=== PATIENT | female | born 1995 | race Caucasian/White ===

== ENCOUNTER → 2017-06-16 10:59 | Outpatient (CLI) | payer MEDICAID, SELFPAY ==
[2017-06-16 13:53] LABS: Hematocrit 37.9 % (37-47); Hemoglobin 12.4 g/dl (12.0-15.0); Mean Corp Hgb Conc 32.7 g/gl (32-36); Mean Corpuscular Hgb 30.5 pg (27.0-32.0); Mean Corpuscular Volume 93.1 fL (81-99); Mean Platelet Vol. 9.3 fl (6.2-12.0); Platelet Count 218 K/mm3 (150-450); RBC Distribution Width CV 13.1 % (11.6-14.6); RBC Distribution Width SD 44.6 fl (35.1-43.9); Red Blood Count 4.07 M/mm3 (4.2-5.4); White Blood Count 8.1 K/mm3 (4.4-11.0)
[2017-06-16 13:54] LABS: Scan Indicated on CBC? Y/N NO
== END ==
PROVIDERS: Visit Provider Obstetrics & Gynecology
DX: Z34.90 Encounter for supervision of normal pregnancy, unspecified, unspecified trimester (principal)
CPT/HCPCS: 36415; 85027

== ENCOUNTER → 2017-07-29 13:37 | Outpatient (CLI) | payer MEDICAID, SELFPAY ==
[2017-07-29 14:03] LABS: Amphetamine Urine VISTA NEGATIVE (<1000 ng/mL); Barbiturate Urine VISTA NEGATIVE (< 200 ng/mL); Benzodiazepine Urine VISTA NEGATIVE (< 200 ng/mL); Cocaine Urine VISTA NEGATIVE (< 300 ng/mL); Ecstacy Urine VISTA NEGATIVE (< 500 ng/mL); Methadone Urine VISTA NEGATIVE (< 300 ng/mL); PCP Urine VISTA NEGATIVE (< 25 ng/mL); THC Urine VISTA NEGATIVE (< 50 ng/mL); Vista UDS pH Range 6
== END ==
PROVIDERS: Visit Provider Obstetrics & Gynecology
DX: O99.320 Drug use complicating pregnancy, unspecified trimester (principal); F12.90 Cannabis use, unspecified, uncomplicated; Z3A.00 Weeks of gestation of pregnancy not specified
CPT/HCPCS: 80307

== ENCOUNTER 2017-08-09 08:50 | Inpatient (IN) | payer MEDICAID, SELFPAY ==
[2017-08-09] VITALS (18 sets, daily range): BP systolic 89–120; BP diastolic 42–99; PULSE 79–109; RESP 16–20; TEMP 36.1–36.7; O2SAT 98–100; BMI 29.9
--- NOTE | 2017-08-09 | FALS_PTH ---
PATIENT: CRIS PAINTING LOC: [facility] U#:[id number] AGE/SX: 22/F ROOM: WP008 RE08/09/[address]: Dr. Sara Mckinney MD : 1995 BED: 1 DIS: 08/12/2017 SPEC #: [id number] RECD: 08/10/17 08:11 STATUS: JORDY KAY #: [id number] EMILEE: 08/09/17 00:[address]: Sara Mckinney DEPT: SURGICAL PATHOLOGY RECD BY: Ovi Pathak ENTERED: 08/10/17 08:11 SP TYPE: FALL TUBES OTHR DR: No Primary Care Phys Tissues: Fallopian tube Procedures: Surgery Specimen Level II HEADER OPERATION: Tubal ligation, bilateral partial salpingectomy PRE-OP DIAGNOSIS: Sterilization request TISSUE SUBMITTED: Fallopian tubes, suture in right tube MICROSCOPIC DIAGNOSIS Bilateral fallopian tubes, partial salpingectomy: Completely transected segments of bilateral fallopian tubes, no pathologic diagnosis. SJ:fabby 08/11/17 MICROSCOPIC DESCRIPTION Slides are reviewed. GROSS DESCRIPTION Received is one container labeled with the patient's name and designated suture right tube. The specimen consists of two tubular pieces of mejia-pink soft tissue. The right tube is identified by a suture. The right tube with suture measures 1 cm in length and 0.5 cm in diameter. This piece is inked black. The left tube measures 1 cm in length and 0.8 cm in diameter. The entire specimen is submitted in one cassette. Both pieces will be sectioned at the time of embedding. / RANDY:fabby 08/10/17 TC:4 CPT: 41562 x2
[2017-08-09 09:46] LABS: Bedside Glucose 83 mg/dL (70-110)
[2017-08-09 09:58] LABS: Absolute Lymphocyte Count 1.24 X10^3/ul (0.83-4.51); Absolute Neutrophil Count 6.8 X10^3/uL (2.0-7.7); Basophil# 0.02 X10^3/uL; Basophil% 0.2 % (0-1); Eosinophil# 0.04 X10^3/uL; Eosinophils% 0.5 % (0-5); Hematocrit 40.5 % (37-47); Hemoglobin 13.3 g/dl (12.0-15.0); Lymphocyte # 1.24 X10^3/ul (4.0); Lymphocyte % 14.2 % (19-41); Mean Corp Hgb Conc 32.8 g/gl (32-36); Mean Corpuscular Volume 91.2 fL (81-99); Mean Platelet Vol. 10.3 fl (6.2-12.0); Monocyte% 6.9 % (0-10); Neutrophil # 6.84 X10^3/uL (2.7-7.7); Neutrophil % 78.1 % (47-70); Platelet Count 238 K/mm3 (150-450); RBC Distribution Width CV 13.1 % (11.6-14.6); RBC Distribution Width SD 43.4 fl (35.1-43.9); Red Blood Count 4.44 M/mm3 (4.2-5.4); White Blood Count 8.8 K/mm3 (4.4-11.0)
[2017-08-09 09:59] LABS: POSITIVE COUNT NO; POSITIVE DIFFERENTIAL NO; POSITIVE MORPHOLOGY NO
[2017-08-09] MEDS: Lactated Ringers 1,000 ML 999 ML IV (10:00)
[2017-08-09] MEDS: Lactated Ringers 1,000 ML 150 ML IV (11:00)
--- NOTE | 2017-08-09 11:06 | NURSING ---
TC to haroon and discussed changing the pt's antibiotic order from ancef to Clindamycin/Gent due to PCN allergy. Also discussed pt's POC BGT in the 80's and a concern that pt is not allowed to eat d/t noon c/s. The plan is to start a second IV line and implement the insulin infusion order set. That orderset gives the orders to do a POC BGT q 1 hour. It also gives the order far a second IV line and to start a D5 maintenance line to prevent hypoglycemia. Handoff given to Jessica.
[2017-08-09] MEDS: Dext 5%-0.45% NS 1,000 ML 125 ML IV ×2 (11:45→13:20)
[2017-08-09 11:48] LABS: Prothrombin Time (Protime)PT. 13.6 SECONDS (11.7-14.9)
[2017-08-09 11:49] LABS: Partial Thromboplast Time 28.1 Seconds (24.1-36.2)
[2017-08-09] MEDS: Sodium Citrate/Citric Acid 30 ML UDC PO (11:55)
[2017-08-09 12:00] LABS: Bedside Glucose 82 mg/dL (70-110)
[2017-08-09] MEDS: Clindamycin 900 MG/50 ML BAG 75 MG IV (12:20)
[2017-08-09] MEDS: Oxytocin 30 units/NS 500 ml 30 UNITS/500 ML IV.SOLN 167 UNITS IV (12:29)
[2017-08-09] MEDS: Methylergonovine 0.2 MG/ML Ampul IM (12:34)
[2017-08-09] MEDS: Ketorolac 30 MG/ML Syringe IV ×2 (12:52→18:34)
[2017-08-09 12:56] LABS: Bedside Glucose 134 mg/dL (70-110)
[2017-08-09] MEDS: Lactated Ringers 1,000 ML 100 ML IV ×2 (13:20→19:37)
[2017-08-09 14:10] LABS: Bedside Glucose 125 mg/dL (70-110)
--- NOTE | 2017-08-09 16:54 | PCM.OP.BLANK ---
Operative Report Date of Procedure: 08/09/17 - 38 wk PROCEDURE: Repeat C section. Bilateral partial salpingectomy Preoperative diagnosis: 38 wk EGA Prior C section, planned repeat C section Type I diabetes, poorly controlled. Polyhydramnios [facility] recommends 38 wk delivery d/t poorly controlled diabetes, and poly. Sterilization request. Postop diagnosis: 38 wk EGA Prior C section, planned repeat C section Type I diabetes, poorly controlled. Polyhydramnios [facility] recommends 38 wk delivery d/t poorly controlled diabetes, and poly. Sterilization request. Anesthesia: Spinal Surgeon: Sara Mckinney MD Machine Stapler: FARIDA Malhotra EBL 800 cc Complications: none Drains: Martins draining clear yellow urine Fluids: replacement LR Findings: At amniotomy, copious clear fluid was noted. Raya viable female in vertex presentation. Apgars 9/9, Baby weight: 7# 9 oz. There was a normal appearing uterus, fallopian tubes and ovaries bilaterally. There were filmy adhesions between the bladder and lower uterine segment. PATH: Routine cord blood for typing collected. Routine cord gases were sent. Bilateral fallopian tube segments. Narrative account: After the risks, benefits and alternatives of the procedure were reviewed with the patient, informed consent was obtained. The patient was taken to the Operative room with an IV running, and placed in a seated position on the operating table for placement of the spinal. Once the spinal had been administered, she was returned to dorsal supine position and briefly frog-legged for Martins catheter placement, and then repositioned to dorsal supine position with leftward displacement of the uterus, and prepped and draped in the usual sterile fashion. Once the spinal was deemed adequate, a Pfannenstiel skin incision was created using the knife (through the prior scar). The incision was carried down to the rectus fascia using the knife. The fascia was nicked in the midline. The fascial incision was extended bilaterally using curved Gutierrez scissors. The superior aspect of the fascial incision was grasped with Merrill clamps and tented up and the underlying rectus abdominal muscles were dissected free. In a similar manner, the inferior aspect of the facial incision was grasped with Merrill clamps tented up and the underlying rectus abdominal muscles were dissected free. The rectus abdominis muscles were in the midline and the peritoneum was identified and entered by blunt dissection high in the incision. The peritoneum was stretched laterally and a bladder blade was inserted. The uterine incision was then created using Metzenbaum scissors. The operators fingertips were used to extend the uterine incision by blunt dissection in a caudad- cephalad orientation . Clear fluid was noted at amniotomy. The vertex was then delivered atraumatically through the incision with the aide of a Kiwi vacuum extractor. A nuchal cord times one was reduced. The shoulders delivered easily. The OP and nares were bulb suctioned on the abdomen. The cord clamped x two and cut. And the infant was handed off to the nurse awaiting delivery after briefly showing her to her parents. The baby had a spontaneous, vigorous cry. The umbilical cord was clamped again for later cord gas and cord blood collection. The placenta was then delivered. The uterus was exteriorized and cleared of clots and debris . The uterine incision was repaired with 1 Vicryl in a running locked fashion. A small hematoma was noted at the right uterine angle and this was incorporated in the suture and oversewn with closure of the uterine incision. Excellent hemostasis was noted. The hematoma remained stable. The R fallopian tube was grasped at a relatively avascular midportion and a Quintin clamp was used to tent the tube up. A defect was created in the mesosalpinx using Bovie cautery and the proximal and distal end of the fallopian tube were tied with 2-0 catgut. A knuckle of the tube was then tied off inferior to the ties. A segment of the R fallopian tube was then excised using Metzenbaum scissors. The tubal segment was set aside for later pathology review. In a similar manner the L fallopian partial salpingectomy was performed. Bovie cautery was used to cauterize the tubal stumps. Excellent hemostasis was noted. At this point the uterus was returned to the abdominal cavity. The gutters were cleared of clots and debris and the incision at the uterus was inspected. Excellent hemostasis was noted. The peritoneal edges and rectus abdominis muscles were reapproximated in the midline with vertical mattress stitches and figure of eight stitches of 1 Vicryl . Excellent hemostasis was noted at the subfascial space The fascia was closed in a running nonlocked fashion with Stratofix. The Subcutaneous fatty tissue was Bovie cauterized as needed for hemostasis. This layer was then reapproximated with a single layer of running 3-0 Vicryl to eliminate space. The skin edges were closed in a Subcuticular stitch of 4-0 Vicryl. The incision was cleansed. Cavilon, Steristrips, and a Mepilex dressing were applied . The patient was then transferred to the recovery room bed in stable condition after tolerating the procedure well. Sponge, lap, needle and instrument counts correct times two. Medications given preop and intraoperatively included: Gentamicin and Clindamycin given account resolution specialist to the operating room. The patient also received: Pitocin given IV after cord clamp. Methergine 0.2 gm IM in R thigh for a mild degree of uterine atony -- which responded to the interventions as mentioned. Toradol 30 mg IV times one was given prior to end of the case. For a complete listing of medications given preop and intraoperatively, please see the anesthesia record.
--- NOTE | 2017-08-09 17:08 | OP.PCM_ITS ---
Operative Report Date of Procedure: 08/09/17 - 38 wk PROCEDURE: Repeat C section. Bilateral partial salpingectomy Preoperative diagnosis: 38 wk EGA Prior C section, planned repeat C section Type I diabetes, poorly controlled. Polyhydramnios [facility] recommends 38 wk delivery d/t poorly controlled diabetes, and poly. Sterilization request. Postop diagnosis: 38 wk EGA Prior C section, planned repeat C section Type I diabetes, poorly controlled. Polyhydramnios [facility] recommends 38 wk delivery d/t poorly controlled diabetes, and poly. Sterilization request. Anesthesia: Spinal Surgeon: Sara Mckinney MD Manager Transport: FARIDA Malhotra EBL 800 cc Complications: none Drains: Martins draining clear yellow urine Fluids: replacement LR Findings: At amniotomy, copious clear fluid was noted. Raya viable female in vertex presentation. Apgars 9/9, Baby weight: 7# 9 oz. There was a normal appearing uterus, fallopian tubes and ovaries bilaterally. There were filmy adhesions between the bladder and lower uterine segment. PATH: Routine cord blood for typing collected. Routine cord gases were sent. Bilateral fallopian tube segments. Narrative account: After the risks, benefits and alternatives of the procedure were reviewed with the patient, informed consent was obtained. The patient was taken to the Operative room with an IV running, and placed in a seated position on the operating table for placement of the spinal. Once the spinal had been administered, she was returned to dorsal supine position and briefly frog- legged for Martins catheter placement, and then repositioned to dorsal supine position with leftward displacement of the uterus, and prepped and draped in the usual sterile fashion. Once the spinal was deemed adequate, a Pfannenstiel skin incision was created using the knife (through the prior scar) . The incision was carried down to the rectus fascia using the knife. The fascia was nicked in the midline. The fascial incision was extended bilaterally using curved Gutierrez scissors. The superior aspect of the fascial incision was grasped with Merrill clamps and tented up and the underlying rectus abdominal muscles were dissected free. In a similar manner, the inferior aspect of the facial incision was grasped with Merrill clamps tented up and the underlying rectus abdominal muscles were dissected free. The rectus abdominis muscles were in the midline and the peritoneum was identified and entered by blunt dissection high in the incision. The peritoneum was stretched laterally and a bladder blade was inserted. The uterine incision was then created using Metzenbaum scissors. The operators fingertips were used to extend the uterine incision by blunt dissection in a caudad- cephalad orientation . Clear fluid was noted at amniotomy. The vertex was then delivered atraumatically through the incision with the aide of a Kiwi vacuum extractor. A nuchal cord times one was reduced. The shoulders delivered easily. The OP and nares were bulb suctioned on the abdomen. The cord clamped x two and cut. And the infant was handed off to the nurse awaiting delivery after briefly showing her to her parents. The baby had a spontaneous, vigorous cry. The umbilical cord was clamped again for later cord gas and cord blood collection. The placenta was then delivered. The uterus was exteriorized and cleared of clots and debris . The uterine incision was repaired with 1 Vicryl in a running locked fashion. A small hematoma was noted at the right uterine angle and this was incorporated in the suture and oversewn with closure of the uterine incision. Excellent hemostasis was noted. The hematoma remained stable. The R fallopian tube was grasped at a relatively avascular midportion and a Gazelle clamp was used to tent the tube up. A defect was created in the mesosalpinx using Bovie cautery and the proximal and distal end of the fallopian tube were tied with 2- 0 catgut. A knuckle of the tube was then tied off inferior to the ties. A segment of the R fallopian tube was then excised using Metzenbaum scissors. The tubal segment was set aside for later pathology review. In a similar manner the L fallopian partial salpingectomy was performed. Bovie cautery was used to cauterize the tubal stumps. Excellent hemostasis was noted. At this point the uterus was returned to the abdominal cavity. The gutters were cleared of clots and debris and the incision at the uterus was inspected. Excellent hemostasis was noted. The peritoneal edges and rectus abdominis muscles were reapproximated in the midline with vertical mattress stitches and figure of eight stitches of 1 Vicryl . Excellent hemostasis was noted at the subfascial space The fascia was closed in a running nonlocked fashion with Stratofix. The Subcutaneous fatty tissue was Bovie cauterized as needed for hemostasis. This layer was then reapproximated with a single layer of running 3-0 Vicryl to eliminate space. The skin edges were closed in a Subcuticular stitch of 4-0 Vicryl. The incision was cleansed. Cavilon, Steristrips, and a Mepilex dressing were applied . The patient was then transferred to the recovery room bed in stable condition after tolerating the procedure well. Sponge, lap, needle and instrument counts correct times two. Medications given preop and intraoperatively included: Gentamicin and Clindamycin given filling station equipment mechanic to the operating room. The patient also received: Pitocin given IV after cord clamp. Methergine 0.2 gm IM in R thigh for a mild degree of uterine atony -- which responded to the interventions as mentioned. Toradol 30 mg IV times one was given prior to end of the case. For a complete listing of medications given preop and intraoperatively, please see the anesthesia record.
--- NOTE | 2017-08-09 17:08 | PCM.DCCSEC ---
Discharge Diet: No Restrictions Discharge Activity: May not drive while taking narcotic pain medications., May Shower, May Take a Tub Bath Return to work on:: 10/03/17 May resume sexual activity in: 4-6 weeks Lifting Restrictions: 20 pounds Additional Activity Instructions:: Nothing in the vagina for 4-6 weeks. You may return to work/school in 8 weeks. Change Dressing in (Days):: 14 Remove Dressing in (days):: 14 Cleanse incision/area with: Soap & Water, Keep Dressing Clean & Dry Additional Instructions: If you experience any of the following, contact your healthcare provider. Bleeding that soaks a pad every hour for 2 hours Fever 100.4 or higher Unrelieved incision or abdominal pain Swelling, redness, discharge or bleeding from your incision Problems urinating (including inability to urinate or burning while urinating). Visual changes Severe headache Flu-like symptoms Pain or redness in one of both of your breasts Pain, warmth, tenderness or swelling in your legs, especially the calf area Frequent nausea and vomiting Symptoms of depression or anxiety If you experience any of the following, call 911 or go to the nearest Emergency Room. Chest pain Problems breathing Seizure activity Partial or complete paralysis of a body part, slurred speech, weakness or drooping of the face, or a sudden inability to walk or hold your balance Allergies/Adverse Reactions: Allergies Penicillins Allergy (Unknown, Verified 08/11/15 16:16) Rash Medications to take at Discharge Insulin Detemir [Levemir Flextouch] 18 unit SQ QHS 08/11/15 Novolog Vial 1 unit SQ DAILY 08/11/15 Pnv95/Iron Fum/Folic Acid [ Caplet] 1 tab PO DAILY 08/11/15 Acetaminophen [Tylenol] 1,000 mg PO Q8H PRN tablet 08/09/17 Glucagon 1 mg IM .X1 PRN syringe 08/09/17 Insulin Aspart [Novolog Flexpen] 1 - 2 units SC X1 PRN flexpen 08/09/17 Insulin Detemir [Levemir FlexPen] 15 units SC QHS insuln.pen 08/09/17 Naproxen [Naprosyn] 250 - 500 mg PO Q8H PRN PRN #30 tab 08/09/17 Oxycodone [Oxyir] 5 - 10 mg PO Q4H PRN PRN 7 Days #28 tab 08/09/17 Senna/Docusate Sodium [Senokot-S] 1 tab PO BID #30 tab 08/09/17 The following prescriptions were given: Oxycodone [Oxyir] 5 - 10 mg PO Q4H PRN PRN 7 Days #28 tab PRN Reason: Mod-Severe Pain (4-1010) Naproxen [Naprosyn] 250 - 500 mg PO Q8H PRN PRN #30 tab PRN Reason: Mild Pain (1-310) Senna/Docusate Sodium [Senokot-S] 1 tab PO BID #30 tab Follow-Up: Call to make an appointment with your doctor for an incision check in 1-2 weeks. You will also need a 6 week post- follow up appointment. Please Follow Up With: Sara Mckinney MD - [phone] When: Call to make an appointment for an incision check in 2 weeks. Primary Care Physician: Care Physician,No Primary [Primary Care Provider] -
--- NOTE | 2017-08-09 17:14 | DCINST_ITS ---
Discharge Diet: No Restrictions Discharge Activity: May not drive while taking narcotic pain medications., May Shower, May Take a Tub Bath Return to work on:: 10/03/17 May resume sexual activity in: 4-6 weeks Lifting Restrictions: 20 pounds Additional Activity Instructions:: Nothing in the vagina for 4-6 weeks. You may return to work/school in 8 weeks. Change Dressing in (Days):: 14 Remove Dressing in (days):: 14 Cleanse incision/area with: Soap & Water, Keep Dressing Clean & Dry Additional Instructions: If you experience any of the following, contact your healthcare provider. * Bleeding that soaks a pad every hour for 2 hours * Fever 100.4 or higher * Unrelieved incision or abdominal pain * Swelling, redness, discharge or bleeding from your incision * Problems urinating (including inability to urinate or burning while urinating) . * Visual changes * Severe headache * Flu-like symptoms * Pain or redness in one of both of your breasts * Pain, warmth, tenderness or swelling in your legs, especially the calf area * Frequent nausea and vomiting * Symptoms of depression or anxiety If you experience any of the following, call 911 or go to the nearest Emergency Room. * Chest pain * Problems breathing * Seizure activity * Partial or complete paralysis of a body part, slurred speech, weakness or drooping of the face, or a sudden inability to walk or hold your balance Allergies/Adverse Reactions: Allergies Penicillins Allergy (Unknown, Verified 08/11/15 16:16) Rash Medications to take at Discharge Insulin Detemir [Levemir Flextouch] 18 unit SQ QHS 08/11/15 Novolog Vial 1 unit SQ DAILY 08/11/15 Pnv95/Iron Fum/Folic Acid [ Caplet] 1 tab PO DAILY 08/11/15 Acetaminophen [Tylenol] 1,000 mg PO Q8H PRN tablet 08/09/17 Glucagon 1 mg IM .X1 PRN syringe 08/09/17 Insulin Aspart [Novolog Flexpen] 1 - 2 units SC X1 PRN flexpen 08/09/17 Insulin Detemir [Levemir FlexPen] 15 units SC QHS insuln.pen 08/09/17 Naproxen [Naprosyn] 250 - 500 mg PO Q8H PRN PRN #30 tab 08/09/17 Oxycodone [Oxyir] 5 - 10 mg PO Q4H PRN PRN 7 Days #28 tab 08/09/17 Senna/Docusate Sodium [Senokot-S] 1 tab PO BID #30 tab 08/09/17 The following prescriptions were given: Oxycodone [Oxyir] 5 - 10 mg PO Q4H PRN PRN 7 Days #28 tab PRN Reason: Mod-Severe Pain (-01/18) Naproxen [Naprosyn] 250 - 500 mg PO Q8H PRN PRN #30 tab PRN Reason: Mild Pain (1-06/18) Senna/Docusate Sodium [Senokot-S] 1 tab PO BID #30 tab Follow-Up: Call to make an appointment with your doctor for an incision check in 1-2 weeks. You will also need a 6 week post- follow up appointment. Please Follow Up With: Sara Mckinney MD - [phone] When: Call to make an appointment for an incision check in 2 weeks. Primary Care Physician: Care Physician,No Primary [Primary Care Provider] -
[2017-08-09] MEDS: Acetaminophen 500 MG Tablet 1000 MG PO (18:02)
[2017-08-09 18:11] LABS: Bedside Glucose 185 mg/dL (70-110)
[2017-08-09 18:53] LABS: Pathology Specimen OB SEE PATHOLOGY REPORT
[2017-08-09 22:40] LABS: Bedside Glucose 207 mg/dL (70-110)
[2017-08-10] VITALS (12 sets, daily range): BP systolic 90–111; BP diastolic 56–75; PULSE 70–99; RESP 16–20; TEMP 35.9–37.1; O2SAT 96–99
[2017-08-10] MEDS: Ketorolac 30 MG/ML Syringe IV ×4 (00:09→18:23)
[2017-08-10] MEDS: 0.9% Saline Lock 10 ML Syringe IV ×4 (00:10→18:23)
[2017-08-10] MEDS: DiphenhydrAMINE 25 MG Capsule PO ×2 (05:09→14:12)
[2017-08-10 05:43] LABS: Hematocrit 32.2 % (37-47); Hemoglobin 10.6 g/dl (12.0-15.0); Mean Corp Hgb Conc 32.9 g/gl (32-36); Mean Corpuscular Hgb 29.9 pg (27.0-32.0); Mean Platelet Vol. 9.1 fl (6.2-12.0); Platelet Count 199 K/mm3 (150-450); RBC Distribution Width CV 12.9 % (11.6-14.6); RBC Distribution Width SD 42.6 fl (35.1-43.9); Red Blood Count 3.54 M/mm3 (4.2-5.4); White Blood Count 10.4 K/mm3 (4.4-11.0)
[2017-08-10 05:53] LABS: Scan Indicated on CBC? Y/N NO
--- NOTE | 2017-08-10 06:53 | PCM.PN.OB ---
Subjective: POD#1 Repeat C/S and BPS Delivered at 38 wk per [facility] recommendation Drowsy, rouses easily to voice. no concerns voiced. States she is doing OK. Normally does NOT take Levimir bid when not : once daily only. Can of Coke (regular, caffeine free) at bedside. - Physical Exam General: Oriented x3, Cooperative, No apparent distress HEENT: Atraumatic Neck: Supple Abdomen: Soft - fundus firm and minimally tender c/w postop status, 2 cm inferior to umbilicus Skin: Incision - Mepilex intact. shadow drainage marked and no extension. Neurological: Cranial nerves II-XII grossly intact Psych/Mental Status: Normal Affect Vital Signs Temp Pulse Resp BP Pulse Ox 97.5 F L 76 18 98/75 98 08/10/17 04:25 08/10/17 05:20 08/10/17 05:20 08/10/17 04:25 08/10/17 05:20 Oxygen Delivery Method Room Air Weight: 74.2 kg Body Mass Index (BMI) 29.9 Finger Stick Blood Glucose 202 Intake and Output for Last 24 Hours 08/08/17 08/09/17 08/10/17 23:59 23:59 23:59 Intake Total 3272 / 3272 919 / 919 Output Total 1400 / 1400 775 / 775 Balance 1872 / 1872 144 / 144 Laboratory Tests Past 24 Hrs 08/09/17 08/09/17 08/09/17 09:30 09:30 09:30 WBC 8.8 RBC 4.44 Hgb 13.3 Hct 40.5 MCV 91.2 MCH 30.0 MCHC 32.8 RDW 13.1 RDW Differential 43.4 Plt Count 238 MPV 10.3 Immature Gran % (Auto) 0.100 Neut % (Auto) 78.1 H Lymph % (Auto) 14.2 L Benton % (Auto) 6.9 Eos % (Auto) 0.5 Baso % (Auto) 0.2 Absolute Neuts (auto) 6.8 Absolute Lymphs (auto) 1.24 Total Counted Not Reportable PT Cancelled INR Cancelled APTT Cancelled Blood Type O POSITIVE Antibody Screen NEGATIVE 08/09/17 08/10/17 11:30 05:18 WBC 10.4 RBC 3.54 L Hgb 10.6 L Hct 32.2 L MCV 91.0 MCH 29.9 MCHC 32.9 RDW 12.9 RDW Differential 42.6 Plt Count 199 MPV 9.1 Immature Gran % (Auto) Neut % (Auto) Lymph % (Auto) Benton % (Auto) Eos % (Auto) Baso % (Auto) Absolute Neuts (auto) Absolute Lymphs (auto) Total Counted PT 13.6 INR 1.0 APTT 28.1 Blood Type Antibody Screen POC Glucose 08/09/17 08/09/17 08/09/17 22:01 17:48 13:52 POC Glucose 207 H 185 H 125 H 08/09/17 08/09/17 08/09/17 12:41 11:04 09:22 POC Glucose 134 H 82 83 Medical Necessity - Tobacco Use Smoking Status: Light Smoker (<10/day) Assessment/Plan POD#1 Repeat C/S at 38 wks (M recommendation-- poorly controlled diabetes, and poly) Stable pp. D/C thakur for voiding trial. Increase diet and activity as tolerated. IV to S/L for continued toradol today. Continue care
[2017-08-10 08:31] LABS: Bedside Glucose 49 mg/dL (70-110)
[2017-08-10 09:01] LABS: Bedside Glucose 95 mg/dL (70-110)
[2017-08-10] MEDS: Prenatal Vits Tablet 1 TABLET PO (09:11)
[2017-08-10 09:26] LABS: Bedside Glucose 161 mg/dL (70-110)
--- NOTE | 2017-08-10 11:01 | NURSING ---
Patient in special care nursery with baby doing skin to skin . Mother denies any signs of hypoglycemia is alert and oriented , denies discomfort
[2017-08-10 12:51] LABS: Bedside Glucose 120 mg/dL (70-110)
--- NOTE | 2017-08-10 12:56 | NURSING ---
Accucheck 120 eating salad , no carb intake at this time. will eat lunch at 1430
[2017-08-10 15:26] LABS: Bedside Glucose 82 mg/dL (70-110)
--- NOTE | 2017-08-10 16:58 | NURSING ---
Mother pumped at 1300 today and 1700 today that was viewed she stated she also pumped at 1500 for short time
--- NOTE | 2017-08-10 17:03 | NURSING ---
states itching better but sleepy from joaquínl
[2017-08-10] MEDS: Acetaminophen 500 MG Tablet 1000 MG PO (20:33)
[2017-08-10 22:16] LABS: Bedside Glucose 190 mg/dL (70-110)
[2017-08-10 22:16] LABS: Bedside Glucose 115 mg/dL (70-110)
[2017-08-11] MEDS: 0.9% Saline Lock 10 ML Syringe IV (01:04)
[2017-08-11 01:10] VITALS: BP 97/63; PULSE 76; RESP 16; TEMP 36.3; O2SAT 96
[2017-08-11] MEDS: Naproxen 250 MG Tablet PO ×3 (01:25→20:00)
[2017-08-11] MEDS: oxyCODONE 5 MG Tablet PO ×3 (02:05→15:14)
[2017-08-11] MEDS: Senna/Docusate Sodium 1 Tablet PO (06:35)
[2017-08-11] MEDS: Prenatal Vits Tablet 1 TABLET PO (08:08)
--- NOTE | 2017-08-11 08:13 | PCM.PN.OB ---
Subjective: No complaints. Breast feeding. Bleeding light. Pain reasonably controlled Objective: Afeb VSS - Physical Exam General: Alert, Oriented x3, Cooperative, No apparent distress Lungs: Clear to auscultation, Normal air movement Cardiovascular: Regular rate, Regular Rhythm Abdomen: Soft, Non Tender, Non-Distended, - - Incision C/D/I no erythema Extremities: No edema, No Calf Tenderness Skin: No rashes Neurological: Neuro grossly intact Psych/Mental Status: Normal Affect Comment: Lochia light Vital Signs Temp Pulse Resp BP Pulse Ox 97.4 F L 76 16 97/63 96 08/11/17 01:10 08/11/17 01:10 08/11/17 01:10 08/11/17 01:10 08/11/17 01:10 Oxygen Delivery Method Room Air Weight: 163 lb 9.328 oz Body Mass Index (BMI) 29.9 Finger Stick Blood Glucose 202 Intake and Output for Last 24 Hours 08/09/17 08/10/17 08/11/17 23:59 23:59 23:59 Intake Total 3272 / 3272 919 / 919 Output Total 1400 / 1400 2175 / 2175 Balance 1872 / 1872 -1256 / -1256 POC Glucose 08/10/17 08/10/17 08/10/17 22:06 20:16 15:20 POC Glucose 190 H 115 H 82 08/10/17 08/10/17 08/10/17 12:40 09:15 08:55 POC Glucose 120 H 161 H 95 08/10/17 08:25 POC Glucose 49 L Medical Necessity - Tobacco Use Smoking Status: Light Smoker (<10/day) Assessment/Plan Doing well on POD #2. Continue routine PO care. baby's anitcipated discharge on 08/13.
[2017-08-11 08:27] VITALS: BP 119/67; PULSE 77; RESP 16; TEMP 36.7; O2SAT 99
[2017-08-11 10:05] LABS: Bedside Glucose 112 mg/dL (70-110)
[2017-08-11 13:01] LABS: Bedside Glucose 116 mg/dL (70-110)
--- NOTE | 2017-08-11 14:55 | NURSING ---
pt in special care nursery, her family is also with her.
[2017-08-11 15:10] LABS: Bedside Glucose 53 mg/dL (70-110)
[2017-08-11 15:10] LABS: Bedside Glucose 40 mg/dL (70-110)
[2017-08-11 15:15] VITALS: BP 115/68; PULSE 115; RESP 16; TEMP 36.3; O2SAT 98
--- NOTE | 2017-08-11 16:30 | CASEMGMT ---
Social Work Note Labor and Delivery Unit History obtained from: Medical record and patient/ mother of baby (MOB) Christine Osborne. MOB educated that this science writer, as the social secretary for [facility] of [facility] Labor and Delivery Unit, also provides social work to the [facility] for continuity of care of families while patients on the SCN (baby admitted to [facility] after ). Educated MOB that information gathered for assessment today to be used in both baby's and MOB's medical records. MOB voiced understanding. Household composition: MOB, reported father of baby Fran Montaño, and older child Srinivas Montaño. MOB reports home situation is safe and adequate, denies any safety concerns. Patient's parent/guardian status: MOB (age 22) reports has been with FOB (age 26) since December 2013. MOB denies any form of abuse in relationship with FOB. Minor Children: MOB and FOB now have two children together: Srinivas Montaño (Born 12/02/2015) and Brianne Montaño (born [birth year]18). FOB has a son, Bridger (age 8) from a previous relationship. Medical History: MOB is G2, P1 to 2 after delivering Brianne. MOB with care starting in January 2017, around 10 weeks gestation. MOB with longstanding history of diabetes, reportedly diagnosed when MOB was in the 6th grade. Record indicates MOB with poorly controlled diabetes during . Infant born at 38 weeks, weighing 7 pounds 9 ounces, and Apgars 9 and 9 at 1 and 5 minutes of life Developmental Concerns: No reported or identified concerns at this time for baby. Educational Status: MOB reports to have a high school diploma, has some training in cosmetology. MOB reports did have an IEP in school for reading, but reports at this time can read, write, and understand what is read. MOB reports will let others know if has a hard time. Health Care Coverage: Critical access hospital Medicaid. Financial Status: MOB does not work outside the home. CATALINO works in a [employer] on first shift, has had this job for 3 weeks. MOB reports to feel this income is adequate at this time. Infant Supplies: MOB reports to have needed supplies including pack-n-play, car seat, breast pump, clothing, diapers, wipes. MOB reports will be getting a crib from 's maternal aunt. MOB planning to breast feed. Childcare/Caregiver(s): MOB Transportation: MOB reports to have a drivers license and car. Programs/Agencies Involved: MOB reports to have food and medical through [facility]. Reports to have WIC. MOB denies any other agency involvement, but reports would be open to [facility] if eligible. Behavioral Health Issues: Mental Health: MOB denies any depression or anxiety at this time. MOB reports as a teen did go to [facility] for counseling related to depression and issues related to stressors at home. MOB denies any thoughts, plans, intent for suicide nor any thoughts of harm to others. MOB stated I don't have that right for suicide as has 2 children who need MOB. Substance Use History: MOB denies alcohol use or abuse history. MOB admits to history of marijuana usage, using for issues related to insomnia. MOB reports did stop using marijuana after finding out about . MOB denies any use of heroin, cocaine, methamphetamines, narcotic prescriptions or other illicit drugs history. Toxicology screens: MOB with positive drug screen for marijuana at first visit on 01-10-17. MOB with subsequent drug screen on 07-29-17 which came back negative. No further testing noted, nor any testing for baby at time of . Family and/or Social Stressors: MOB and FOB did have roommates until about 4-5 months ago. MOB reports it has been better since the roommates moved out. MOB reports FOB does have Bipolar disorder, history of treatment with Paxil, but reports FOB's mental health is doing well right now and denies any concerns about mental health instability. Medical record does indicate that MOB did have some depression during , with up and down emotions, though MOB denies any current symptoms of depression at this time. Support Systems: FOB, MOB's mother, and several friends. MOB reports FOB is also an emotional support to MOB. Assessment MOB pleasant and cooperative with social work visit today. MOB talkative, held good eye contact, and normal motor activity. MOB mood and affect congruent to content; MOB appropriate overall. MOB reports to have needed baby supplies, and to have support from family at home going. MOB reports family is helping to care for MOB's oldest son right now. MOB reports to be managing financially. MOB report would be willing to have supportive services such as [facility] if eligible. MOB denies any history of children services involvement though shared a story when the police threatened to call which was when MOB reportedly left Srinivas in the car while MOB ran into the gas station. MOB reports children services never came out, and MOB learned lesson that this is not appropriate to do. MOB reports to feel a sun with this baby, desires to keep and parent infant. Talked with MOB about continued cessation of marijuana, or other illicit drugs, and importance of abstinence especially while breast feeding. MOB expresses understanding. No children service report being made at this time as MOB reports to have needed supplies, has been appropriate with baby thus far (no reports from nursing otherwise), MOB last drug screen came back negative and no testing on baby. Plan MOB discharging home. Provided MOB with comprehensive resources list for [facility], information on [facility] and also the [facility] [place] [facility] through [facility]. Provided a packet on depression and anxiety, including online resources for support. Referrals, such as [facility], will be completed when baby is discharged from current hospitalization. Nothing furthe from [facility] social work stand point. -CARLOS Shah, COMPUTER PUBLISHER
[2017-08-11 17:55] LABS: Bedside Glucose 85 mg/dL (70-110)
[2017-08-11] MEDS: Acetaminophen 500 MG Tablet 1000 MG PO (18:40)
[2017-08-11 19:51] VITALS: BP 105/63; PULSE 91; RESP 18; TEMP 36.8; O2SAT 97
[2017-08-11 22:35] LABS: Bedside Glucose 103 mg/dL (70-110)
[2017-08-12 01:45] VITALS: BP 96/49; PULSE 69; RESP 16; TEMP 36.5
[2017-08-12] MEDS: Naproxen 250 MG Tablet PO (04:06)
[2017-08-12 08:00] VITALS: BP 112/76; PULSE 89; RESP 16; TEMP 36.6
--- NOTE | 2017-08-12 08:45 | PCM.PN.OB ---
Subjective: No specific complaints. Bleeding light. Pain well controlled. Pumping. Objective: Afeb VSS - Physical Exam General: Alert, Oriented x3, Cooperative, No apparent distress Lungs: Clear to auscultation, Normal air movement Cardiovascular: Regular rate, Regular Rhythm Abdomen: Soft, Non Tender, Non-Distended, - - Fundus firm nontender. Incision dressing intact. Extremities: No edema Skin: No rashes Neurological: Neuro grossly intact Psych/Mental Status: Normal Affect Comment: Lochia light Vital Signs Temp Pulse Resp BP Pulse Ox 97.7 F L 69 16 96/49 L 97 08/12/17 01:45 08/12/17 01:45 08/12/17 01:45 08/12/17 01:45 08/11/17 19:51 Oxygen Delivery Method Room Air Weight: 163 lb 9.328 oz Body Mass Index (BMI) 29.9 Finger Stick Blood Glucose 202 Intake and Output for Last 24 Hours 08/10/17 08/11/17 08/12/17 23:59 23:59 23:59 Intake Total 919 / 919 Output Total 2175 / 2175 Balance -1256 / -1256 POC Glucose 08/11/17 08/11/17 08/11/17 22:24 17:49 12:55 POC Glucose 103 85 116 H 08/11/17 08/11/17 08/11/17 09:54 08:16 08:14 POC Glucose 112 H 53 L 40 L* Medical Necessity - Tobacco Use Smoking Status: Light Smoker (<10/day) Assessment/Plan Doing well on POD#3. Cleared for discharge home today. Home going instructions and warnings given. May stay in border status aas baby likely will be in special care for a few days.
--- NOTE | 2017-08-12 08:48 | PCM.DC.SUM ---
Discharge Date and Diagnosis Date of Admission: 08/09/17 Date of Discharge: 08/12/17 - Primary Discharge Diagnosis S/P repeat C/S and partial bilateral salpingectomy. Hospital Course and Treatment Operations: - - Repeat LTCS and partial bilateral salpingectomy Summary of Care Provided: The patient is a 22 year old F [admitted for repeat C/S due to poorly controlled gestational diabetes. This was performed without complication. Post operative course unremarkable. Discharged on POD#3.] Discharge Diet: No Restrictions Discharge Activity: May not drive while taking narcotic pain medications., May Shower, May Take a Tub Bath Return to work on:: 10/03/17 May resume sexual activity in: 4-6 weeks Additional Activity Instructions:: Nothing in the vagina for 4-6 weeks. You may return to work/school in 8 weeks. Change Dressing in (Days):: 14 Remove Dressing in (days):: 14 Cleanse incision/area with: Soap & Water, Keep Dressing Clean & Dry Home Medications: Medications to take at Discharge Insulin Detemir [Levemir Flextouch] 18 unit SQ QHS 08/11/15 Novolog Vial 1 unit SQ DAILY 08/11/15 Pnv95/Iron Fum/Folic Acid [ Caplet] 1 tab PO DAILY 08/11/15 Acetaminophen [Tylenol] 1,000 mg PO Q8H PRN tablet 08/09/17 Glucagon 1 mg IM .X1 PRN syringe 08/09/17 Insulin Aspart [Novolog Flexpen] 1 - 2 units SC X1 PRN flexpen 08/09/17 Insulin Detemir [Levemir FlexPen] 15 units SC QHS insuln.pen 08/09/17 Naproxen [Naprosyn] 250 - 500 mg PO Q8H PRN PRN #30 tab 08/09/17 Oxycodone [Oxyir] 5 - 10 mg PO Q4H PRN PRN 7 Days #28 tab 08/09/17 Senna/Docusate Sodium [Senokot-S] 1 tab PO BID #30 tab 08/09/17 Following Prescrptions Were Given to Patient: Oxycodone [Oxyir] 5 - 10 mg PO Q4H PRN PRN 7 Days #28 tab PRN Reason: Mod-Severe Pain (-01/18) Naproxen [Naprosyn] 250 - 500 mg PO Q8H PRN PRN #30 tab PRN Reason: Mild Pain (-06/18) Senna/Docusate Sodium [Senokot-S] 1 tab PO BID #30 tab Other Amb Orders: Electric breast pump Time Frame: 1 Year, Location: None Selected Primary Care Physician: Care Physician,No Primary [Primary Care Provider] - Please Follow Up With: Sara Mckinney MD - [phone] When: Call to make an appointment for an incision check in 2 weeks. Disposition: Home Minutes spent on discharge:: 15 Patient Condition:: Good Medical Necessity - Tobacco Use Smoking Status: Light Smoker (<10/day) Meaningful Use Info Meaningful Use Diagnoses (Choose all that apply): None applicable
[2017-08-12] MEDS: Senna/Docusate Sodium 1 Tablet PO (08:55)
[2017-08-12] MEDS: Acetaminophen 500 MG Tablet 1000 MG PO (08:56)
[2017-08-12] MEDS: Prenatal Vits Tablet 1 TABLET PO (08:57)
[2017-08-12 09:11] LABS: Bedside Glucose 67 mg/dL (70-110)
[2017-08-12 12:15] LABS: Bedside Glucose 162 mg/dL (70-110)
[2017-08-12 13:00] VITALS: BP 123/79; PULSE 108; RESP 18; TEMP 36.7
[2017-08-12 13:30] VITALS: BP 123/79; PULSE 108; RESP 18; TEMP 36.7
== END 2017-08-12 13:30 | disposition home or self-care (01) | DRG 370 ==
PROVIDERS: Admitting Provider Obstetrics & Gynecology; Visit Provider Obstetrics & Gynecology
PROC: 10D00Z1 Extraction of Products of Conception, Low, Open Approach (ICD-10-PCS; CPT 59514; principal; 2017-08-09 11:45)
DX: O24.02 Pre-existing type 1 diabetes mellitus, in childbirth (principal); E10.65 Type 1 diabetes mellitus with hyperglycemia; O99.334 Smoking (tobacco) complicating childbirth; O40.3XX0 Polyhydramnios, third trimester, not applicable or unspecified; Z3A.38 38 weeks gestation of pregnancy; Z37.0 Single live birth; Z79.4 Long term (current) use of insulin; Z79.82 Long term (current) use of aspirin; O34.211 Maternal care for low transverse scar from previous cesarean delivery
CPT/HCPCS: 82962; 85025; 85027; 85610; 85730; 86850; 86900; 88302; 99218; J7120; A4216; G0378; J2405; J7799

== ENCOUNTER → 2019-06-12 13:44 | Outpatient (CLI) | payer MEDICAID, SELFPAY ==
[2019-06-12 18:27] LABS: Chlamydia Trachomatis by PCR Negative (Negative); Neisserai gonorrhoeae by PCR Negative (Negative); Probe Check PASS; Sample Adequacy Control PASS; Specimen Processing Control PASS; Trichomonas Vag DNA by PCR Negative (Negative)
[2019-06-13 12:15] LABS: HIV - WCH Non-Reactive (Nonreactive); Hepatitis B Surface Antibody Non-Reactive; Hepatitis C Antibody Non-Reactive (Nonreactive)
[2019-06-14 00:26] LABS: Rapid Plasmin Reagin (RPR) NONREACTIVE (NONREACTIVE)
[2019-06-14 14:06] LABS: HSV 1 IgG 0.96 index (0.00-0.90); HSV 2 IgG < 0.91 index (0.00-0.90)
== END ==
PROVIDERS: Visit Provider Obstetrics & Gynecology
DX: Z11.3 Encounter for screening for infections with a predominantly sexual mode of transmission (principal)
CPT/HCPCS: 36415; 86592; 86695; 86696; 86703; 86706; 86803; 87491; 87591; 87661

== ENCOUNTER → 2019-11-26 16:44 | Outpatient (CLI) | payer MEDICAID, SELFPAY ==
[2017-08-09 09:44] VITALS: BMI 29.9
[2019-12-07 14:33] LABS: HPV HC, High Risk POSITIVE; HPV Reflexed? YES, CHARGE PATIENT
== END ==
PROVIDERS: Visit Provider Obstetrics & Gynecology
DX: Z12.4 Encounter for screening for malignant neoplasm of cervix (principal)
CPT/HCPCS: 87624; 88175; G0145